=== PATIENT | female | born 1995 | race Caucasian/White ===

== ENCOUNTER 2022-05-15 07:13 | Outpatient (CLI) | payer BC, SELFPAY ==
--- NOTE | 2022-05-15 07:15 | CRLHL7_ITS ---
For Patients: As a result of the Cures Act, medical imaging exams and procedure reports are released immediately into your electronic medical record. You may view this report before your referring provider. If you have questions, please contact your health care provider. INDICATION: First trimester scan, establish dates. COMPARISON: None. TECHNIQUE: Real-time strong-scale imaging of the pelvis was performed. FINDINGS: Sonographic imaging demonstrates a single living intrauterine gestation. The embryo demonstrates a regular cardiac rate measuring 176 beats per minute. The embryo`s crown-rump length measurement of 4.8 cm corresponds to a gestational age of 11 weeks 4 days with a sonographic due date of 11/30/2022. There is a normal-appearing yolk sac. There are no gross abnormalities noted within the embryo at this early state of development. The gestational sac has a normal appearance. There is no evidence of a perigestational hemorrhage. The amount of fluid within the sac appears appropriate for gestational age. The cervix is closed. The myometrium appears normal. The ovaries are of normal size. Corpus luteal cyst left ovary. There are no suspicious fluid collections noted in the cul-de-sac. IMPRESSION: Normal first trimester OB ultrasound exam. Gestational age calculated at 11 weeks 4 days with a sonographic due date of 11/30/2022. Dictated by Rico Gamino MD @ 05/15/2022 8:26:41 AM (Electronically Signed)
== END 2022-05-15 07:14 | disposition home or self-care (01) ==
PROVIDERS: PCP Family Medicine; Visit Provider Physician Assistant
DX: Z34.91 Encounter for supervision of normal pregnancy, unspecified, first trimester (principal); Z3A.11 11 weeks gestation of pregnancy
CPT/HCPCS: 76801; 84443; 86592; 86703; 86762; 86787; 86803; 86850; 86900; 86901; 87086; 87340; 87491; 87591

== ENCOUNTER 2022-06-19 08:34 | Outpatient (CLI) | payer BC, SELFPAY ==
[2022-06-21 11:31] LABS: Dating Other; Family Hx Neural Tube Defect No; Insulin Req Maternal Diabetes No; Maternal Age At Delivery 29.4 yr; Maternal Race Nonblack; Maternal Screen Interpretation Screen Neg; MoM for AFP 0.33; Number of Fetuses Singleton; Patient's AFP 14 ng/mL; Smoking No
== END 2022-06-19 08:35 | disposition home or self-care (01) ==
PROVIDERS: PCP Family Medicine; Visit Provider Advanced Practice Midwife
DX: Z34.82 Encounter for supervision of other normal pregnancy, second trimester (principal); E03.9 Hypothyroidism, unspecified
CPT/HCPCS: 81511; 84443

== ENCOUNTER 2022-07-13 08:33 | Outpatient (CLI) | payer BC, SELFPAY ==
--- NOTE | 2022-07-13 08:45 | CRLHL7_ITS ---
For Patients: As a result of the Century Cures Act, medical imaging exams and procedure reports are released immediately into your electronic medical record. You may view this report before your referring provider. If you have questions, please contact your health care provider. INDICATION: Evaluate anatomy. COMPARISON: None. TECHNIQUE: Real time strong scale imaging of the fetus was performed. FINDINGS: Sonographic imaging demonstrates a single living intrauterine gestation. Fetus demonstrates a regular cardiac rate of 161 beats per minute. Fetus has a vertex orientation and longitudinal lie. The placenta lies posteriorly without evidence of placenta previa. Amniotic fluid volume appears normal. Single deepest vertical pocket: 4.8 cm. The cervix is closed and measures 3.9 cm in length. The composite ultrasound gestational age is calculated at 20 weeks 3 days with an estimated sonographic due date of November 27, 2022. The estimated weight is 358 grams which lies at the 87th percentile. The following biometric measurements were obtained: Biparietal diameter: 4.68 cm/20 weeks 1 day 69% Head circumference: 17.5 cm/20 weeks 0 days 57% Abdominal circumference: 15.9 cm/21 weeks 0 days 84% Femur length: 3.22 cm/20 weeks 0 days 55% The HC/AC ratio measures: 1.10 range (1.07-1.25) On anatomic survey, there is a normal appearance of the cerebral ventricles, cisterna magna and cerebellum. The nose, lips, and facial profile appear normal. The cervical, thoracic and lumbar spine are well visualized and appear normal. There is a normal four-chamber heart view and the left and right ventricular outflow tracts appear normal. Please note however there is a 2 mm echogenic focus within the left ventricle which is an isolated finding and of doubtful significance. diaphragm, stomach, kidneys and bladder appear normal. There is a normal three-vessel cord. There is however an eccentric cord insertion site on the placenta. The four extremities appear normal. IMPRESSION: Normal OB ultrasound exam with concordance of clinical and sonographic dating. No intrinsic abnormalities noted on anatomic survey. Incidental note is made of a 2 mm echogenic focus within the left ventricle doubtful significance. Dictated by Jesús Robbins MD @ 07/13/2022 9:59:14 AM (Electronically Signed)
== END 2022-07-13 08:34 | disposition home or self-care (01) ==
LOC: US 08:35
PROVIDERS: PCP Family Medicine; Visit Provider Advanced Practice Midwife
DX: Z34.92 Encounter for supervision of normal pregnancy, unspecified, second trimester (principal); Z3A.19 19 weeks gestation of pregnancy
CPT/HCPCS: 76805; 82950; 84443

== ENCOUNTER 2022-07-15 07:34 | Outpatient (CLI) | payer BC, SELFPAY ==
[2022-07-15 07:40] LABS: Glucose Fasting Check 98 mg/dl (60-115)
[2022-07-15 12:26] LABS: Glucose GTT-Gestational 3 Hr 122 mg/dl (70-140)
[2022-07-15 12:26] LABS: Glucose 1 Hour Gest 170 mg/dl (70-180)
== END 2022-07-15 07:35 | disposition home or self-care (01) ==
LOC: NFLDREF 07:34
PROVIDERS: PCP Family Medicine; Visit Provider Advanced Practice Midwife
DX: O24.419 Gestational diabetes mellitus in pregnancy, unspecified control (principal)
CPT/HCPCS: 82951; 82952

== ENCOUNTER 2022-08-05 12:44 | Outpatient (CLI) | payer BC, SELFPAY | END 2022-08-05 12:45 | disposition home or self-care (01) | LOC: US 12:45 | PROVIDERS: PCP Family Medicine; Visit Provider Pediatrics Neonatal-Perinatal Medicine | DX: Z34.82 Encounter for supervision of other normal pregnancy, second trimester (principal); Z3A.23 23 weeks gestation of pregnancy | CPT/HCPCS: 76815 ==